=== PATIENT | female | born 1980 | race Caucasian/White ===

== ENCOUNTER → 2017-03-10 | Outpatient (CLI) | payer OTHER ==
--- NOTE | 2017-03-10 11:55 | WOMENS IMAGING REPORT ---
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 TECHNIQUE: Real-time and static grayscale imaging performed of the left axilla targeted to the area of clinical concern. Selected color Doppler images recorded. LIMITATIONS: None. FINDINGS: Patient indicates a tender palpable abnormality in the left axilla. Ultrasound of the left axilla demonstrates a benign appearing lymph node in the area of tenderness in dicated by the patient. This lymph node is less than 5 mm short axis, with preserved central hilar f at and normal lymph node cortical thickness. Overall this measures 17 x 4.8 mm. No increased color flow. No worrisome features. Ultrasound of the left axilla is otherwise unremarkable IMPRESSION: Benign-appearing lymph node left axilla BIRAD: 2 Benign findings. RECOMMENDATION: RECOMMENDED FOLLOW-UP: Follow-up as clinically indicated. COMMENT: The [employer] ([employer]) has developed recommendations for screening MRI of the breasts in certain patient populations, to be used in conjunction with mammography. Breast MRI s urveillance may be appropriate for women with more than 20% lifetime risk of developing breast cancer as determined by genetic testing, significant family history of the disease, or history of mantle r adiation for Hodgkins Disease. [employer] Practice Guidelines 2008. TECHNICAL DOCUMENTATION: JOB ID: [id number] [employer]- All Rights Reserved
== END ==
LOC: WI 11:05
PROVIDERS: ATTEND Physician Assistant
DX: G90.511 Complex regional pain syndrome I of right upper limb (principal); M94.1 Relapsing polychondritis
CPT/HCPCS: 76642